=== PATIENT | female | born 1955 | race Caucasian/White ===

== ENCOUNTER 2025-08-10 11:16 | Emergency (ER) | payer MEDICARE, OTHER, SELFPAY ==
[2025-08-10 11:19] VITALS: BP 143/92; PULSE 88; RESP 18; TEMP 36.6; O2SAT 98
[2025-08-10 11:21] VITALS: BP 143/92; PULSE 88; RESP 18; TEMP 36.6; O2SAT 98
--- NOTE | 2025-08-10 11:22 | W.ED.GENAD ---
Discharge Plan Disposition Patient Disposition: Home Condition: Stable Discharge Details Clinical Impression: Diverticulitis Primary Care Provider: Carine Devlin ED Provider: Cy Vargas Home Meds and New Rx's Prescriptions: New amoxicillin-pot clavulanate 875-125 mg tablet 1 tab PO BID 10 Days Qty: 20 0RF Continued losartan 50 mg tablet 10 mg PO DAILY rosuvastatin [Crestor] 5 mg tablet 5 mg PO DAILY Discharge Instructions Instructions: High Potassium Diet, Diverticulitis, Amoxicillin and Clavulanate Additional Instructions: You were seen in the emergency department for your abdominal pain of unknown certain cause, CT scan shows acute diverticulitis without perforation or abscess, this is treated with Augmentin which has been sent to [facility] in [place]. Please take Tylenol and ibuprofen as needed for pain, continue with your bone broth/clear fluid diet for a couple days, if you need to eat eat some plain foods. Please return for any intractable nausea or vomiting, worsening despite treatment especially with fever. Stand Alone Forms: Portal Information Referrals: Carine Devlin [Primary Care Provider, Medicine] Discharge Data Discharge Date/Time-TO BE ENTERED AT DEPARTURE: 08/10/25 13:11 HPI General Date/Time Provider Initiated Documentation: 08/10/25 11:22. HPI Narrative: 70 year-old female presents to ED today by POV/ambulating with her with a chief complaint of LLQ abdominal pain, questions if she's having a diverticulitis flare-up with onset two days ago. Quality described as aching constant pain in LLQ, no radiation to complete constipation, nausea/vomiting, endorses low-grade fevers in 99F range, denies dysuria, denies bloody diarrhea. Severity is described as moderate. Palliating factors include tried clear fluid diet/bone broth yesterday with some improvement. Provoking factors include nothing specific. Events leading up to the incident/Associated Symptoms: Patient is visiting the area from [facility], staying with sister in [place]. Patient not anticoagulated. Related Data Home Medications ?Medication ?Instructions ?Recorded ?Confirmed amoxicillin 875 mg-potassium 1 tab PO BID 10 days #20 tabs 08/10/25 clavulanate 125 mg tablet losartan 50 mg tablet 10 mg PO DAILY 08/10/25 08/10/25 rosuvastatin 5 mg tablet (Crestor) 5 mg PO DAILY 08/10/25 08/10/25 Previous Rx's ?Medication ?Instructions ?Recorded amoxicillin 875 mg-potassium 1 tab PO BID 10 days #20 tabs 08/10/25 clavulanate 125 mg tablet Allergies Allergy/AdvReac Type Severity Reaction Status Date / Time No Known Allergies Allergy Verified 08/10/25 12:07 General Stated Complaint: Abd Prob DIGNA: 3 Review of Systems All systems reviewed & are unremarkable except as noted in HPI and below Exam Narrative Exam Narrative: GENERAL APPEARANCE: Well-nourished, non-toxic, awake and alert, atraumatic, mild acute distress. SKIN: Warm, pink, dry, intact, without rashes/lesions/ulcerations. HEAD: Normocephalic, atraumatic, normal hair distribution for gender/age. EYES: Normal conjunctiva, no exudates on lids/lashes. ENT: Nares patent, no circumoral cyanosis, no facial swelling NECK: Supple, trachea midline, painless cervical ROM. LUNGS/CHEST: Non-labored respirations, normal A/P diameter, symmetrical expansion, no chest wall deformity HEART (CV/PV): No peripheral edema, no JVD. ABDOMEN: Soft, non-distended, no guarding, LLQ tenderness without rebound tenderness, CVA tenderness to percussion L side. MSK: Normal ROM, no swelling/deformity to bilateral UEs or LEs, moving all extremities without weakness, no cyanosis, spine midline without tenderness, normal curvature. NEURO: Mental Status AAOx4 - alert to person, place, time, events No facial droop, no forehead involvement. Motor: No focal weakness - strength 5/5 in bilateral UEs and LEs, proximal and distal, symmetric. Sensory: sensation intact to light touch globally. Gait normal: patient ambulated without ataxia into ED room. PSYCH: euthymic, cooperative, pleasant, appropriate speech Course Vital Signs Vital signs: Vital Signs Temperature 36.6 C 08/10/25 11:19 Pulse 88 08/10/25 11:19 Respiratory Rate 18 08/10/25 11:19 Blood Pressure 143/92 H 08/10/25 11:19 Pulse Oximetry 98 08/10/25 11:19 Temperature 36.6 C 08/10/25 11:21 Pulse 88 08/10/25 11:21 Respiratory Rate 18 08/10/25 11:21 Blood Pressure 143/92 H 08/10/25 11:21 Pulse Oximetry 98 08/10/25 11:21 Pain Level 5 08/10/25 11:21 Medical Decision Making This dictation utilizes [id number] dictation software and may contain unedited grammatical errors. 70 year-old female presents to ED today by POV/ambulating with her with a chief complaint of LLQ abdominal pain, questions if she's having a diverticulitis flare-up with onset two days ago. Quality described as aching constant pain in LLQ, no radiation to complete constipation, nausea/vomiting, endorses low-grade fevers in 99F range, denies dysuria, denies bloody diarrhea. Severity is described as moderate. Palliating factors include tried clear fluid diet/bone broth yesterday with some improvement. Provoking factors include nothing specific. Events leading up to the incident/Associated Symptoms: Patient is visiting the area from [facility], staying with sister in [place]. Patients' medical history: Hyperlipidemia, hypertension. Family and social history: Noncontributory, skipped Thanksgiving dinner yesterday. Pertinent exam findings / vital signs include left lower quadrant tenderness with left CVA tenderness to percussion, benign cardiopulmonary status, nontoxic. Differential / pathologies of concern include diverticulitis, colitis, gastroenteritis, obstructive uropathy or renal colic, unlikely SBO. Diagnostic studies of: - CBC, CMP, lactate, magnesium, lipase, UA, CT ABD/pelvis with contrast. - CBC shows a nonspecific leukocytosis of 12.46 without left shift - Lactate 1.0 - CMP shows mild hypokalemia and encouraged high potassium diet - Lipase negative - Magnesium normal - UA benign - CT shows acute diverticulitis without perforation or abscess Interventions of: - 1 g IV Tylenol, 1 L IVF NS, Rx for Augmentin. ED Course/Assessment/Plan: 70-year-old female presents with left-sided abdominal pain, history of diverticulitis, CT shows diverticulitis without abscess or perforation, her labs are reassuring for no sign of sepsis, no obstructive uropathy, counseled patient on using Augmentin and Tylenol for pain, continue clear fluid diet or very bland foods like white rice, encouraged some increased potassium intake with potassium barely below normal, counseled on strict return criteria for any severe acute worsening especially fever, nausea or vomiting, lack of passing gas or flatus, bloody diarrhea. Findings not consistent with SBO, sepsis, renal colic. Disposition of Diverticulitis. Patient verbalized understanding of the plan and return to ED criteria and engaged in shared decision making. Medical Records Medical records reviewed: Yes I reviewed the patient's medical records. Imaging Data Radiologic Study: Attestation: I personally reviewed and interpreted this imaging study as follows: Imaging: CT Scan Radiologist's impression: EXAM: CT ABDOMEN PELVIS W CLINICAL HISTORY: LLQ tenderness; divertic vs renal colic. TECHNIQUE: Imaging Protocol: Axial computed tomography images with coronal and sagittal reformatted images were created and reviewed CONTRAST MATERIAL: Intravenous: Omnipaque 350 Contrast volume:100 ml Oral: yes no COMPARISON: No exams were available for comparison FINDINGS: ABDOMEN and PELVIS: Lung Bases: No acute findings. Liver: Normal density. No suspicious mass. Gallbladder and biliary tract: Large calcified stone. No wall thickening or pericholecystic fluid. No biliary dilation. Pancreas: Normal density. No abnormal calcifications or inflammatory process. No evidence of mass. Spleen: Normal. Kidneys: Normal size, contour and axis. No radiodense stones. No obstructive uropathy. No suspicious masses seen. Adrenal glands: No masses seen. Vasculature: Abdominal aorta non-dilated. Soft tissues: Unremarkable. Bladder: No gross wall thickening. No calculi.No focal mass. Bowel: No obstruction. Extensive diverticulosis of all vein the descending and sigmoid colon. There is inflammation and wall thickening at the upper descending colon consistent with diverticulitis. There is no evidence of abscess or perforation. Appendix normal. Peritoneal cavity: Trace amount of fluid in the low pelvis. No focal collection. No free air. Bones: Bilateral prostheses. Reproductive organs: Unremarkable. Lymph nodes: No pathologically enlarged lymph nodes. IMPRESSION:: Diverticulitis of the upper descending colon. No perforation or abscess. Findings called to ER provider. Lab Data Lab results reviewed: Yes I reviewed the patient's lab results. Labs: Laboratory Tests Range/Units 08/10/25 12:05 WBC (4.4-10.8) 10^3/uL 12.46 H RBC (3.93-5.22) 10^6/uL 4.49 Hgb (11.2-15.7) g/dL 13.7 Hct (36.0-46.0) % 39.5 MCV (80-95) fL 88 MCH (27.0-33.0) pg 30.5 MCHC (32.0-36.0) % 34.7 RDW (11.7-14.6) % 12.2 Plt Count (130-400) 10^3/uL 261 MPV (8.0-11.0) fL 9.7 Immature Gran % % 0.3 Neutrophils % % 79.7 Lymphocytes % % 11.9 Monocytes % % 6.7 Eosinophils % % 0.8 Basophils % % 0.6 Nucleated RBC % (0.0-0.3) % 0.0 Absolute Neutrophils (1.2-6.7) 10^3/uL 9.93 H Absolute Lymphocytes (1.2-3.4) 10^3/uL 1.48 Absolute Monocytes (0.1-0.8) 10^3/uL 0.83 H Absolute Eosinophils (0.0-0.7) 10^3/uL 0.10 Absolute Basophils (0.0-0.2) 10^3/uL 0.07 VBG Lactate (<or=2.0) mmol/L 1.0 Sodium (136-145) mmol/L 142 Potassium (3.5-5.1) mmol/L 3.4 L Chloride (98-107) mmol/L 107 Carbon Dioxide (20.0-31.0) mmol/L 26.4 Anion Gap (3-11) mmol/L 8.6 BUN (9-23) mg/dL 11 Creatinine (0.55-1.02) mg/dL 0.91 Est GFR (CKD-EPI 2020) (mL/min/1.73m2) 60.68 Glucose (74-106) mg/dL 100 Calcium (8.3-10.6) mg/dL 9.4 Magnesium (1.6-2.6) mg/dL 1.8 Total Bilirubin (0.2-1.2) mg/dL 0.90 AST (<34) U/L 28 ALT (10-49) U/L 28 Alkaline Phosphatase (46-116) U/L 65 Total Protein (5.7-8.2) g/dL 8.0 Albumin (3.2-5.0) g/dL 4.7 Lipase (<53) U/L 24 Urine Color (Yellow) Yellow Urine Clarity (Clear) Cloudy Urine pH (5-8) 5.5 Ur Specific [place] (1.005-1.025) 1.020 Urine Protein (Neg-Trace) mg/dL Negative Urine Ketones (Negative) mg/dL Negative Urine Blood (Negative) Small H Urine Nitrite (Negative) Negative Urine Bilirubin (Negative) Negative Urine Urobilinogen (Up to 0.2) mg/dL 0.2 Ur Leukocyte Esterase (Negative) Negative Urine RBC (0-2) HPF 0-2 Urine WBC (0-5) HPF Negative Ur Epithelial Cells (Negative) HPF Moderate Urine Crystals (Negative) HPF Negative Urine Bacteria (Negative) HPF Moderate Urine Casts (Negative) LPF Negative Urine Mucus (Negative) Negative Ur Culture Indicated? No Urine Glucose (Negative) mg/dL Negative PFSH All Active Problems (Updated 08/10/25 @ 12:54 by ALEXANDRA Ward) Diverticulitis (Chronic) Social History Smoking/Tobacco Use Status: Never Smoking risk assessment performed?: Yes
--- NOTE | 2025-08-10 11:30 | DI.CT_ITS ---
Exam(s) CT ABDOMEN PELVIS W EXAM: CT ABDOMEN PELVIS W CLINICAL HISTORY: LLQ tenderness; divertic vs renal colic. TECHNIQUE: Imaging Protocol: Axial computed tomography images with coronal and sagittal reformatted images were created and reviewed CONTRAST MATERIAL: Intravenous: Omnipaque 350 Contrast volume:100 ml Oral: yes no COMPARISON: No exams were available for comparison FINDINGS: ABDOMEN and PELVIS: Lung Bases: No acute findings. Liver: Normal density. No suspicious mass. Gallbladder and biliary tract: Large calcified stone. No wall thickening or pericholecystic fluid. No biliary dilation. Pancreas: Normal density. No abnormal calcifications or inflammatory process. No evidence of mass. Spleen: Normal. Kidneys: Normal size, contour and axis. No radiodense stones. No obstructive uropathy. No suspicious masses seen. Adrenal glands: No masses seen. Vasculature: Abdominal aorta non-dilated. Soft tissues: Unremarkable. Bladder: No gross wall thickening. No calculi.No focal mass. Bowel: No obstruction. Extensive diverticulosis of all vein the descending and sigmoid colon. There is inflammation and wall thickening at the upper descending colon consistent with diverticulitis. There is no evidence of abscess or perforation. Appendix normal. Peritoneal cavity: Trace amount of fluid in the low pelvis. No focal collection. No free air. Bones: Bilateral prostheses. Reproductive organs: Unremarkable. Lymph nodes: No pathologically enlarged lymph nodes. IMPRESSION:: Diverticulitis of the upper descending colon. No perforation or abscess. Findings called to ER provider. RADIATION DOSE DELIVERED: 371.2mGy.cm Total DLP DATA REPOSITORY: All CT scans at this facility are submitted to the National Radiology Data Registry (NRDR) Dose Index Registry (DIR) with the [employer] (A[employer]). RADIATION OPTIMIZATION: All CT scans at this facility use at least one of these dose optimization techniques: automated exposure control; mA and/or kV adjustment per patient size (includes targeted exams where dose is matched to clinical indication); or iterative reconstruction.
[2025-08-10] MEDS: ACETAMINOPHEN 1,000 MG/100 ML BAG 400 MG IVPB (11:57)
[2025-08-10] MEDS: Normal Saline 1,000 ML 1000 ML IV (12:03)
[2025-08-10 12:15] LABS: Abs Immature Grans 0.04 10^3/uL (0.0-0.06); HCT 39.5 % (36.0-46.0); HGB 13.7 g/dL (11.2-15.7); Immature Grans % 0.3 %; MCH 30.5 pg (27.0-33.0); MCHC 34.7 % (32.0-36.0); MCV 88 fL (80-95); MPV 9.7 fL (8.0-11.0); Platelet Count 261 10^3/uL (130-400); RBC 4.49 10^6/uL (3.93-5.22); RDW 12.2 % (11.7-14.6); RDW-SD 39.5 fL; WBC 12.46 10^3/uL (4.4-10.8)
[2025-08-10 12:23] LABS: Glucose Negative (Negative)
[2025-08-10] MEDS: Normal Saline - Diluent 50 ML VIAL IJ (12:28)
[2025-08-10] MEDS: Omnipaque 350 MG/ML 100 ML BTL IJ (12:28)
[2025-08-10] MEDS: Normal Saline Flush 10 ML SYR IVP (12:29)
[2025-08-10 12:31] LABS: C & S Indicated? No; Lipase 24 U/L (<53); RBC 0-2 HPF (0-2); WBC Negative HPF (0-5)
[2025-08-10 12:32] LABS: Magnesium 1.8 mg/dL (1.6-2.6)
[2025-08-10 12:33] LABS: ALT 28 U/L (10-49); AST 28 U/L (<34); Albumin 4.7 g/dL (3.2-5.0); Alkaline Phosphatase 65 U/L (46-116); Anion Gap 8.6 mmol/L (3-11); BUN 11 mg/dL (9-23); Bilirubin, Total 0.90 mg/dL (0.2-1.2); CO2 26.4 mmol/L (20.0-31.0); Calcium 9.4 mg/dL (8.3-10.6); Chloride 107 mmol/L (98-107); Glucose 100 mg/dL (74-106); Potassium 3.4 mmol/L (3.5-5.1); Sodium 142 mmol/L (136-145); Total Protein 8.0 g/dL (5.7-8.2)
[2025-08-10 13:11] VITALS: BP 141/80; PULSE 71; RESP 18; O2SAT 96
== END 2025-08-10 13:11 | disposition home or self-care (01) ==
PROVIDERS: Emergency Provider Physician Assistant; PCP Family Medicine
DX: K57.32 Diverticulitis of large intestine without perforation or abscess without bleeding (principal)
CPT/HCPCS: 80053; 83690; 96365; 99285; 74177; 81003; 81015; 83605; 83735; 85025; 99284; J0131; J3490